=== PATIENT | male | born 1975 ===

== ENCOUNTER 2018-04-19 21:27 | Emergency (ER) | payer SELFPAY ==
[2018-04-19 21:55] VITALS: BP 133/76
--- NOTE | 2018-04-19 21:57 | UC ---
Headache HPI - HPI Summary HPI Summary: The patient is a 42 you male with the onset of an occipital JACKSON 5 days ago Initially bilateral but now right sided No n/v/d no photophotia JACKSON worse when he turns his head He rides a bike to work and uses a computer Has had some relief with ASA and tylenol fells like muscle spasm - History Of Current Complaint Stated Complaint: HEADACHE Time Seen by Provider: 04/19/18 21:38 Hx Obtained From: Patient Onset/Duration: Gradual Onset, Lasting Days Onset Of Symptoms: Gradual Initially Headache Was: Moderate Currently Pain Is: Moderate Pain Intensity: 6 Pain Scale Used: 0-10 Numeric Timing: Constant Character: Sharp - and achy Location of Headache: Occipital Aggravating Factor(s): Position Change Allevating Factor(s): Medication Associated Signs And Symptoms: Positive: Neck Pain. Negative: Dizziness, Seizure, Nausea, Vomiting, Sinus Pressure, Fever, Neck Stiffness, Decreased LOC , Visual Changes - Allergies/Home Medications Allergies/Adverse Reactions: Allergies Allergy/AdvReac Type Severity Reaction Status Date / Time pollen extracts Allergy Runny Nose Verified 04/19/18 21:57 Home Medications: Home Medications Acetaminophen PED LIQ* [Tylenol PED LIQ UDC*] 2 teasp PO Q6H PRN 04/19/18 [ History Confirmed 04/19/18] PMH/Surg Hx/FS Hx/Imm Hx Previously Healthy: Yes - Surgical History Surgical History: None - Family History Known Family History: Positive: Cardiac Disease, Hypertension - Social History Alcohol Use: None Substance Use Type: None Smoking Status (MU): Never Smoked Tobacco - Immunization History Most Recent Tetanus Shot: as child Review of Systems Constitutional: Negative Skin: Negative Eyes: Negative ENT: Negative Respiratory: Negative Cardiovascular: Negative Gastrointestinal: Negative Genitourinary: Negative Motor: Negative Neurovascular: Negative Musculoskeletal: Arthralgia, Myalgia Neurological: Headache Psychological: Negative Is Patient Immunocompromised?: No All Other Systems Reviewed And Are Negative: Yes Physical Exam Triage Information Reviewed: Yes Appearance: Well-Appearing, No Pain Distress, Well-Nourished Vital Signs: Initial Vital Signs Temp 98.7 F 04/19/18 21:39 Pulse 79 04/19/18 21:39 Resp 18 04/19/18 21:39 BP 133/76 04/19/18 21:39 Pulse Ox 96 06/29/18 21:39 Vital Signs Reviewed: Yes Eyes: Positive: Conjunctiva Clear, Other: - fundi benign, PERRL,EOMI ENT: Positive: Hearing grossly normal, Uvula midline. Negative: Nasal congestion, Nasal drainage, Tonsillar swelling, Tonsillar exudate, Trismus, Muffled voice, Hoarse voice, Dental tenderness, Sinus tenderness Neck: Positive: Supple, Nontender, Other: - turn with turning head to left Respiratory: Positive: Lungs clear, Normal breath sounds, No respiratory distress, No accessory muscle use Cardiovascular: Positive: RRR, No Murmur Musculoskeletal: Positive: ROM Intact, No Edema Neurological: Positive: Alert, Muscle Tone Normal, Other: - GCS15/15, strenght 5 /5, DTRs brisk and symmetric, normal gait Psychological Exam: Normal Skin Exam: Normal Headache Course/Dx - Differential Dx/Diagnosis Provider Diagnoses: cervicogenic headache Discharge - Sign-Out/Discharge Documenting (check all that apply): Discharge/Admit/Transfer - Discharge Plan Condition: Stable Disposition: HOME Prescriptions: Cyclobenzaprine TAB* [Flexeril TAB*] 5 mg PO TID PRN #9 tab PRN Reason: Spasms Ibuprofen TAB* [Motrin TAB*] 600 mg PO Q6H PRN #40 tab PRN Reason: Pain Patient Education Materials: Tension Headache (ED) Referrals: [facility] [Outside] - If Needed (call to find a local MD) No Primary Care Phys,NOPCP [Primary Care Provider] - Additional Instructions: I suspect you have a muscle contraction headache I suggest you get rechecked in the EMERGENCY ROOM if : headache worsens you develop worsening pain new symptoms develop don't take the muscle relaxant and drive/bike or work recheck in 3-5 days if not better - Billing Disposition and Condition Condition: STABLE Disposition: Home
[2018-04-19] MEDS ORDERED: Ibuprofen TAB* 600 MG PO ONE (22:11)
[2018-04-19] MEDS ORDERED: Cyclobenzaprine TAB* 10 MG PO ONE (22:12)
== END 2018-04-19 22:25 | disposition home or self-care (01) ==
LOC: UCEAST 21:27
DX: G44.89 Other headache syndrome (principal); Z91.09 Other allergy status, other than to drugs and biological substances
CPT/HCPCS: 99203; A9270-GY; G0463